=== PATIENT | male | born 1960 | race African-American/Black ===

== ENCOUNTER 2017-09-29 18:20 | Emergency (ER) | payer MEDICAID ==
[~2017-09-29] VITALS: Ht 167.6 cm; Wt 85.0 kg
[~2017-09-29 18:20] MED LIST: GLYB5TAB3 PO; HYDR1TAB12 PO; LISI-170 PO; METF500T PO; METF850T2 PO; METH-356 PO; SIMV20TA3 PO
[2017-09-29 18:25] VITALS: BP 151/87
== END 2017-09-29 19:27 | disposition home or self-care (01) ==
LOC: ED 19:10
DX: F10.220 Alcohol dependence with intoxication, uncomplicated (principal); I10 Essential (primary) hypertension; S00.531A Contusion of lip, initial encounter; X58.XXXA Exposure to other specified factors, initial encounter; Y93.89 Activity, other specified; Y99.8 Other external cause status; Y92.89 Other specified places as the place of occurrence of the external cause
CPT/HCPCS: 99283

== ENCOUNTER 2018-05-15 19:31 | Emergency (ER) | payer MEDICAID ==
[~2018-05-15] VITALS: Ht 167.6 cm; Wt 68.9 kg
[2018-05-15 19:38] VITALS: BP 129/86
[2018-05-15] MEDS ORDERED: HYDROcodone/APAP 5/325 TABLET PO STA (20:02)
[2018-05-15] MEDS ORDERED: HYDROcodone/APAP 5/325 TABLET ONE (20:03)
== END 2018-05-15 20:59 | disposition home or self-care (01) ==
LOC: ED 20:50
DX: S43.52XA Sprain of left acromioclavicular joint, initial encounter (principal); F17.200 Nicotine dependence, unspecified, uncomplicated; X58.XXXA Exposure to other specified factors, initial encounter; Y93.89 Activity, other specified; Y92.512 Supermarket, store or market as the place of occurrence of the external cause; Y99.8 Other external cause status
CPT/HCPCS: 99284

== ENCOUNTER 2018-11-28 11:07 | Inpatient (IN) | payer MEDICAID ==
[~2018-11-28] VITALS: Ht 167.6 cm; Wt 70.4 kg
[~2018-11-28 11:07] MED LIST changes: -HYDR1TAB12 PO; +HYDR1TAB13 PO; +METF850T10 PO; -METF850T2 PO; -METH-356 PO; +METH10TA2 PO
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
[2018-11-28] MEDS ORDERED: VERAPAMIL 2.5 MG/ML, 2ML ONE (11:51)
[2018-11-28] MEDS ORDERED: MIDAZOLAM 1 MG/ML, 5ML ONE (11:51)
[2018-11-28] MEDS ORDERED: FENTANYL PF 100 MCG/2ML ONE (11:51)
[2018-11-28] MEDS ORDERED: LIDOCAINE 2%, 20ML ONE (11:51)
[2018-11-28] MEDS ORDERED: TICAGRELOR 90 MG TABLET ONE (11:51)
[2018-11-28] MEDS ORDERED: HEPARIN 1,000 UNITS/ML, 10ML ONE (11:51)
[2018-11-28] MEDS ORDERED: BIVALIRUDIN 250 MG ONE (11:51)
[2018-11-28] MEDS ORDERED: MORPHINE SULFATE 4 MG/ML, 1ML ONE (12:07)
--- NOTE | 2018-11-28 12:13 | NUR ---
C/O left sided CP radiating to vero and neck. Hx HTN, DM, high choelsterol. Denies medications. Patient is poor historian. Code cardiac called at 1146. IVs x 2 started. Placed on NIBP, pulse ox and gambling monitor. Repeat EKG done. ASA admin and nitro held per cardiology order.
[2018-11-28 12:15] LABS: BASOPHILS # (AUTO) 0.03 x10^3/uL (0-0.1); BASOPHILS % (AUTO) 0 % (0-1); EOSINOPHILS # (AUTO) 0.14 x10^3/uL (0-0.4); EOSINOPHILS % (AUTO) 2 % (1-7); LYMPHOCYTES # (AUTO) 2.27 x10^3/uL (1-3.4); LYMPHOCYTES % (AUTO) 35 % (22-44); MD NO; MEAN CORPUSCULAR HEMOGLOBIN 29.7 pg (27.5-34.5); MEAN CORPUSCULAR HGB CONC 32.9 g/dL (33.2-36.2); MEAN CORPUSCULAR VOLUME 90.2 fL (81-97); MEAN PLATELET VOLUME 8.1 fL (7.4-10.4); MONOCYTES % (AUTO) 6 % (2-9); NEUTROPHILS # (AUTO) 3.64 x10^3/uL (1.8-6.8); NEUTROPHILS % (AUTO) 56 % (42-75); PLATELET COUNT 245 x10^3/uL (130-400); RED BLOOD COUNT 4.64 x10^6/uL (4.38-5.82); RED CELL DISTRIBUTION WIDTH 14.3 % (9.4-14.8)
[2018-11-28 12:27] LABS: ALBUMIN 3.4 g/dL (3.4-5.0); ANION GAP 3 mmol/L (5-15); CALCIUM 8.5 mg/dL (8.5-10.1); CHLORIDE 102 mmol/L (98-107); CREATININE 1.06 mg/dL (0.7-1.3)
[2018-11-28 12:31] LABS: TROPONIN I < 0.015 ng/mL (0.000-0.045)
[2018-11-28] MEDS: SODIUM CHLORIDE 0.9% 1,000 ML IV SCH ×2 (12:35→20:35)
[2018-11-28] MEDS ORDERED: ASPIRIN 81 MG TABLET CHEW PO ONE (13:00)
[2018-11-28 13:30] VITALS: BP_SYST 122; BP_SYST 132; BP_DIAS 58; BP_DIAS 65
[2018-11-28] MEDS ORDERED: ENOXAPARIN 40 MG/0.4 ML SQ SCH (13:30)
[2018-11-28 16:08] LABS: ANION GAP 5 mmol/L (5-15); CALCIUM 8.1 mg/dL (8.5-10.1); CHLORIDE 104 mmol/L (98-107); CREATININE 0.95 mg/dL (0.7-1.3)
[2018-11-28 16:26] VITALS: BP 132/68
[2018-11-28 20:00] VITALS: BP 151/84
[2018-11-28] MEDS: ACETAMINOPHEN 325 MG TABLET PO PRN (20:24)
[2018-11-28] MEDS ORDERED: ATORVASTATIN 40 MG TABLET PO SCH (21:00)
[2018-11-28] MEDS: FAMOTIDINE 20 MG TABLET PO SCH (21:47)
[2018-11-29 02:00] VITALS: BP 147/77
[2018-11-29] MEDS: ACETAMINOPHEN 325 MG TABLET PO PRN ×2 (04:09→11:52)
[2018-11-29 04:39] LABS: BASOPHILS # (AUTO) 0.02 x10^3/uL (0-0.1); BASOPHILS % (AUTO) 0 % (0-1); EOSINOPHILS # (AUTO) 0.15 x10^3/uL (0-0.4); EOSINOPHILS % (AUTO) 3 % (1-7); LYMPHOCYTES # (AUTO) 2.35 x10^3/uL (1-3.4); LYMPHOCYTES % (AUTO) 41 % (22-44); MD NO; MEAN CORPUSCULAR HEMOGLOBIN 30.6 pg (27.5-34.5); MEAN CORPUSCULAR VOLUME 90.1 fL (81-97); MEAN PLATELET VOLUME 7.9 fL (7.4-10.4); MONOCYTES # (AUTO) 0.36 x10^3/uL (0.2-0.8); MONOCYTES % (AUTO) 6 % (2-9); NEUTROPHILS # (AUTO) 2.87 x10^3/uL (1.8-6.8); NEUTROPHILS % (AUTO) 50 % (42-75); PLATELET COUNT 245 x10^3/uL (130-400); RED CELL DISTRIBUTION WIDTH 14.4 % (9.4-14.8)
[2018-11-29 04:48] LABS: ALANINE AMINOTRANSFERASE 22 U/L (12-78); ANION GAP 3 mmol/L (5-15); CALCIUM 8.4 mg/dL (8.5-10.1); CHLORIDE 106 mmol/L (98-107)
[2018-11-29 04:51] LABS: ALKALINE PHOSPHATASE 71 U/L (45-117); BILIRUBIN,TOTAL 0.4 mg/dL (0.2-1.0); CREATININE 0.81 mg/dL (0.7-1.3); TOTAL PROTEIN 6.1 g/dL (6.4-8.2)
[2018-11-29 05:45] VITALS: BP 157/99
[2018-11-29] MEDS ORDERED: ASPIRIN 81 MG TABLET EC PO SCH (06:00)
[2018-11-29 07:15] VITALS: BP 160/90
[2018-11-29] MEDS ORDERED: NICOTINE 21 MG/24 HR PATCH.TD24 TD SCH (09:00)
[2018-11-29] MEDS: FAMOTIDINE 20 MG TABLET PO SCH (11:52)
[2018-11-29] MEDS ORDERED: LOSA25TA25 PO (12:16)
[2018-11-29] MEDS ORDERED: METF10007 PO (12:16)
[2018-11-29] MEDS ORDERED: ATOR40TA78 PO (12:16)
[2018-11-29] MEDS ORDERED: ASPI81TA45 PO (12:16)
== END 2018-11-29 13:15 | disposition home or self-care (01) | DRG 287 ==
LOC: ED 12:01 → EDIP 12:02 → ED 12:07 → ICU 12:56 → 5SO 11-29 05:34
PROVIDERS: ADMIT Internal Medicine; ATTEND Internal Medicine
PROC: 4A023N7 Measurement of Cardiac Sampling and Pressure, Left Heart, Percutaneous Approach (ICD-10-PCS; principal; 2018-11-28)
PROC: B2111ZZ Fluoroscopy of Multiple Coronary Arteries using Low Osmolar Contrast (ICD-10-PCS; 2018-11-28)
PROC: B2151ZZ Fluoroscopy of Left Heart using Low Osmolar Contrast (ICD-10-PCS; 2018-11-28)
DX: R07.89 Other chest pain (principal); E11.9 Type 2 diabetes mellitus without complications; E78.00 Pure hypercholesterolemia, unspecified; E78.5 Hyperlipidemia, unspecified; E87.5 Hyperkalemia; F17.210 Nicotine dependence, cigarettes, uncomplicated; I10 Essential (primary) hypertension; Z82.49 Family history of ischemic heart disease and other diseases of the circulatory system; Z83.3 Family history of diabetes mellitus; Z91.14 Patient's other noncompliance with medication regimen; Z79.84 Long term (current) use of oral hypoglycemic drugs; Z88.5 Allergy status to narcotic agent; Z88.8 Allergy status to other drugs, medicaments and biological substances; Z91.018 Allergy to other foods
CPT/HCPCS: 36415; 71045; 80047; 80048; 80053; 82040; 83735; 84484; 85025; 87081; 93005; 93306; 93458; 99156; C1769; C1894; G0378; J0583; J1644; J1650; J2250; J3010; J3490; C1887; J7030; Q9967

== ENCOUNTER 2020-08-20 15:00 | Emergency (ER) | payer MEDICAID ==
[~2020-08-20] VITALS: Ht 167.6 cm; Wt 70.0 kg
[~2020-08-20 15:00] MED LIST changes: +ASPI81TA45 PO; +ATOR40TA78 PO; +LOSA25TA25 PO; +METF10007 PO; +SIMV20TA19 PO; -SIMV20TA3 PO
[2020-08-20] MEDS ORDERED: CEPHALEXIN 500 MG CAPSULE ONE (15:18)
[2020-08-20] MEDS ORDERED: LIDOCAINE-MPF 1%, 5ML ONE (15:18)
[2020-08-20] MEDS ORDERED: DIAZEPAM 5 MG TABLET ONE (15:18)
--- NOTE | 2020-08-20 15:26 | NUR ---
PT AGITATED, ANGRY AND YELLING AT STAFF. PT REMOVED DRESSING TO L MIDDLE FINGER AND THREW IT ON GURNEY. PT ASSISTED ONTO GURNEY, HELPED INTO GOWN. PT MEDICATED PER ERP ORDER.
[2020-08-20] MEDS ORDERED: LIDOCAINE 1%, 10ML INFIL ONE (15:30)
[2020-08-20] MEDS ORDERED: CEPHALEXIN 500 MG CAPSULE PO ONE (15:30)
[2020-08-20] MEDS ORDERED: DIAZEPAM 5 MG TABLET PO ONE (15:30)
[2020-08-20] MEDS ORDERED: PROPOFOL 10 MG/ML, 20ML ONE (16:14)
[2020-08-20] MEDS ORDERED: DIPH,PERTUSS(ACELL),TET VAC/PF 0.5 ML IM-VACC ONE ×2 (16:30→17:39)
[2020-08-20] MEDS ORDERED: PROPOFOL 10 MG/ML, 20ML IVPush ONE (16:30)
--- NOTE | 2020-08-20 16:35 | NUR ---
PT UNABLE TO STAY STILL FOR LAC REPAIR. CONSENT FOR SEDATION OBTAINED, PROCEDURE WITH DR MCKAY AND YONAS DAVILA AT BS.
[2020-08-20] MEDS ORDERED: KETAMINE 10 MG/ML, 20ML ONE (16:53)
[2020-08-20] MEDS ORDERED: CEFAZOLIN PMX 1GM/50ML 50 ML IV ONE (17:30)
[2020-08-20] MEDS ORDERED: CEFAZOLIN PMX 1GM/50ML 50 ML ONE (17:39)
--- NOTE | 2020-08-20 18:29 | NUR ---
REPORT GIVEN TO DIANE MARCUS
[2020-08-20 18:34] VITALS: BP 123/62
[2020-08-20] MEDS ORDERED: KETAMINE 10 MG/ML, 20ML IV ONE (18:38)
== END 2020-08-20 18:47 | disposition home or self-care (01) ==
LOC: ED 17:24
DX: S61.221A Laceration with foreign body of left index finger without damage to nail, initial encounter (principal); E11.9 Type 2 diabetes mellitus without complications; E78.00 Pure hypercholesterolemia, unspecified; I10 Essential (primary) hypertension; F17.200 Nicotine dependence, unspecified, uncomplicated; M79.5 Residual foreign body in soft tissue; W31.89XA Contact with other specified machinery, initial encounter; Y93.89 Activity, other specified; Y92.89 Other specified places as the place of occurrence of the external cause; Y99.0 Civilian activity done for income or pay
CPT/HCPCS: 11760; 90471; 90715; 96365; 96375; 99152; 99285; J0690; J2704; J3490; 12042

== ENCOUNTER 2020-08-24 13:19 | Emergency (ER) | payer MEDICAID ==
[~2020-08-24] VITALS: Ht 167.6 cm; Wt 71.1 kg
[2020-08-24 14:39] VITALS: BP 160/118
--- NOTE | 2020-08-24 14:42 | NUR ---
field counsel: back to triage room for repeat vitals, wound evaluation. cleansed, neosporin applied then rebandanged
[2020-08-24] MEDS ORDERED: NEOSPORIN OINT. PKT 1 PACKET ONE (14:44)
[2020-08-24] MEDS ORDERED: HYDROcodone/APAP 5/325 TABLET ONE (14:49)
--- NOTE | 2020-08-24 14:56 | NUR ---
medicated per emar for left 3rd finger pain. provided with bus pass and flyer for [facility] to assist with paying for antibiotics Also provided with extra wound care supplies
[2020-08-24] MEDS ORDERED: HYDROcodone/APAP 5/325 TABLET PO ONE (15:00)
== END 2020-08-24 14:59 | disposition home or self-care (01) ==
LOC: ED 14:00
DX: M25.542 Pain in joints of left hand (principal); F17.200 Nicotine dependence, unspecified, uncomplicated; Z48.00 Encounter for change or removal of nonsurgical wound dressing
CPT/HCPCS: 29130; 99283

== ENCOUNTER 2020-09-14 19:53 | Emergency (ER) | payer MEDICAID ==
[~2020-09-14] VITALS: Ht 167.6 cm; Wt 69.4 kg
[2020-09-14 20:20] VITALS: BP 175/93
--- NOTE | 2020-09-14 20:59 | NUR ---
Pt with multiple complaints. Pt here for suture removal for sutures placed day after Thanksgiving. Pt also c/o fevers/chills for the last 2 days. Pt states he wants to get tested for COVID s/t walking into a room with someone sick--unsure if COVID. Denies further symptoms.
--- NOTE | 2020-09-14 20:59 | NUR ---
LOLA BRADFORD AT BS, COVID SWAB COMPLETE, SUTRES REMOVED BY TECH
== END 2020-09-14 21:16 | disposition home or self-care (01) ==
LOC: ED 21:00
DX: R68.83 Chills (without fever) (principal); Z20.828 Contact with and (suspected) exposure to other viral communicable diseases; I10 Essential (primary) hypertension; E11.9 Type 2 diabetes mellitus without complications; E78.00 Pure hypercholesterolemia, unspecified; F17.210 Nicotine dependence, cigarettes, uncomplicated; Z48.02 Encounter for removal of sutures
CPT/HCPCS: 87635; 99283; 99406

== ENCOUNTER 2020-10-14 11:51 | Emergency (ER) | payer MEDICAID ==
[~2020-10-14] VITALS: Ht 167.6 cm; Wt 72.2 kg
[2020-10-14 11:54] VITALS: BP 160/103
--- NOTE | 2020-10-14 12:20 | NUR ---
ER PROVIDER AT BEDSIDE FOR EVALUATION.
--- NOTE | 2020-10-14 12:21 | NUR ---
PATIENT WALKED BACK FROM TRIAGE WITH CHIEF C/O LEFT MIDDLE FINGER PAIN. PATIENT REPORTS HE CUT THE TIP OF HIS FINGER A WHILE BACK ON A WOOD SPLITTER AND HAD STICHES PLACED THE DAY AFTER THANKSGIVING. NOW HE IS EXPERINCING PAIN AND WANTS "THE DRY SKIN CUT OFF." PATIENT STATES THE NAIL IS NOT GROWING BACK STRAIGHT. MANUEL,CALL LIGHT WITHIN REACH, WAITING FOR ORDERS FROM PROVIDER.
--- NOTE | 2020-10-14 13:24 | NUR ---
Patient given discharge instructions and prescriptions and they have confirmed that they understand the instructions. Patient stable and ambulatory with steady gait from ED.
== END 2020-10-14 13:25 | disposition home or self-care (01) ==
LOC: ED 13:00
DX: L03.012 Cellulitis of left finger (principal); Z76.0 Encounter for issue of repeat prescription; S62.633D Displaced fracture of distal phalanx of left middle finger, subsequent encounter for fracture with routine healing; E11.9 Type 2 diabetes mellitus without complications; F17.290 Nicotine dependence, other tobacco product, uncomplicated; Z91.14 Patient's other noncompliance with medication regimen; X58.XXXD Exposure to other specified factors, subsequent encounter
CPT/HCPCS: 99283

== ENCOUNTER 2021-01-19 21:45 | Emergency (ER) | payer MEDICAID ==
[~2021-01-19] VITALS: Ht 167.6 cm; Wt 76.5 kg
[2021-01-20 00:14] VITALS: BP 36/88
== END 2021-01-20 00:15 | disposition home or self-care (01) ==
LOC: ED 22:23
DX: G89.11 Acute pain due to trauma (principal); R07.89 Other chest pain; E11.9 Type 2 diabetes mellitus without complications; I10 Essential (primary) hypertension; I44.4 Left anterior fascicular block; E78.00 Pure hypercholesterolemia, unspecified; F17.210 Nicotine dependence, cigarettes, uncomplicated; Z88.8 Allergy status to other drugs, medicaments and biological substances
CPT/HCPCS: 93005; 99283; 99406

== ENCOUNTER 2021-05-14 13:15 | Emergency (ER) | payer MEDICAID ==
[~2021-05-14] VITALS: Ht 167.6 cm; Wt 70.7 kg
[2021-05-14 13:17] VITALS: BP 147/101
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
--- NOTE | 2021-05-14 14:12 | NUR ---
ICE PACK PROVIDED TO PT FOR L JAW. PT REQUESTING PAIN MEDS AND FOOD. FRIEND AT BS.
[2021-05-14] MEDS ORDERED: IBUPROFEN 600 MG TABLET ONE (14:52)
[2021-05-14] MEDS ORDERED: ACETAMINOPHEN 500 MG TABLET ONE (14:53)
--- NOTE | 2021-05-14 14:59 | NUR ---
PT MEDICATED FOR PAIN PER ORDERS. D/C INSTRUCTIONS, MEDS & F/U APPT RV'WD WITH PT, HE VERBALIZES UNDERSTANDING. RX GIVEN X1. DENTAL REFERRAL LIST PROVIDED TO PT. INSTRUCTED PT TO RETURN FOR FEVER OR CONCERNING SYMPTOMS. AMBULATED OUT OF ED WITH FRIEND WITHOUT DIFFICULTY.
[2021-05-14] MEDS ORDERED: ACETAMINOPHEN 500 MG TABLET PO ONE (15:00)
[2021-05-14] MEDS ORDERED: IBUPROFEN 600 MG TABLET PO ONE (15:00)
== END 2021-05-14 15:00 | disposition home or self-care (01) ==
LOC: ED 14:55
DX: K02.9 Dental caries, unspecified (principal); I10 Essential (primary) hypertension; E78.00 Pure hypercholesterolemia, unspecified; E11.9 Type 2 diabetes mellitus without complications
CPT/HCPCS: 70100; 99283